=== PATIENT | male | born 1990 | race Caucasian/White ===

== ENCOUNTER 2017-01-07 15:31 | Emergency (ER) | payer SELFPAY ==
[~2017-01-07] VITALS: Ht 170.2 cm; Wt 70.0 kg
[2017-01-07 16:40] VITALS: BP 122/70
== END 2017-01-07 23:00 | disposition left against medical advice (07) ==
LOC: ER 22:58
DX: Z04.8 Encounter for examination and observation for other specified reasons (principal); Z53.21 Procedure and treatment not carried out due to patient leaving prior to being seen by health care provider

== ENCOUNTER 2017-01-13 19:47 | Emergency (ER) | payer SELFPAY ==
[~2017-01-13] VITALS: Ht 170.2 cm; Wt 72.0 kg
[2017-01-13 20:41] VITALS: BP 140/97
== END 2017-01-13 23:15 | disposition left against medical advice (07) ==
LOC: ER 19:47
DX: Z53.21 Procedure and treatment not carried out due to patient leaving prior to being seen by health care provider (principal)